=== PATIENT | female | born 1985 ===

== ENCOUNTER 2019-12-03 07:56 | Inpatient (IN) | payer BC ==
[~2019-12-03 07:56] MED LIST: cefOXitin 2 GM Vial ONE
[2019-12-03] MEDS ORDERED: Scopolamine 1.5 MG Transdermal Patch TOP ONE (08:00)
[2019-12-03] MEDS ORDERED: Celecoxib 200 MG Cap PO ONE (08:00)
[2019-12-03] MEDS ORDERED: Acetaminophen 500 MG Tab PO ONE (08:00)
[2019-12-03] MEDS ORDERED: Dextrose 5%-Lactated Ringers 1,000 ML IV SCH ×2 (08:15→14:30)
[2019-12-03 08:45] LABS: HEMOGLOBIN A1C 5.7 % (4.5-6.2)
[2019-12-03] MEDS ORDERED: fentaNYL 250 MCG/5 ML SDV ONE ×2 (09:01→11:03)
[2019-12-03] MEDS ORDERED: Rocuronium 50 MG/5 ML Vial ONE ×2 (09:02→11:16)
[2019-12-03] MEDS ORDERED: Glycopyrrolate 0.2 MG/ML 5 ML MDV ONE (09:02)
[2019-12-03] MEDS ORDERED: Ondansetron 4 MG/2 ML SDV ONE (09:02)
[2019-12-03] MEDS ORDERED: Neostigmine Methylsulfate 1 MG/ML 5 ML Syringe ONE (09:02)
[2019-12-03] MEDS ORDERED: Dexamethasone 4 MG/ML SDV ONE (09:02)
[2019-12-03] MEDS ORDERED: Propofol 200 MG/20 ML SDV ONE (09:02)
[2019-12-03] MEDS ORDERED: Succinylcholine 200 MG/10 ML MDV ONE (09:02)
[2019-12-03] MEDS ORDERED: cefOXitin 2 GM in Sodium Chloride 0.9% 50 ML IV ONE (09:30)
[2019-12-03] MEDS ORDERED: Ketamine 500 MG/5 ML MDV IV SCH (09:30)
[2019-12-03] MEDS ORDERED: Ketamine 50 MG in Sodium Chloride 0.9% 49.5 ML IV SCH (09:30)
[2019-12-03] MEDS ORDERED: Magnesium Sulfate 3.8 GM in Sodium Chloride 0.9% 100 ML IV SCH (09:30)
[2019-12-03] MEDS ORDERED: Lactated Ringers 1,000 ML ONE (10:22)
[2019-12-03] MEDS ORDERED: Labetalol 20 MG/4 ML Syringe ONE (12:18)
[2019-12-03] MEDS ORDERED: fentaNYL 100 MCG/2 ML SDV IVPUSH ONE (13:07)
[2019-12-03] MEDS ORDERED: hydrOXYzine HCL 100 MG/2 ML SDV IM ONE (13:07)
[2019-12-03] MEDS: HYDROmorphone 1 MG/ML Syringe IV PRN ×2 (14:43→19:35)
[2019-12-03] MEDS ORDERED: diphenhydrAMINE 50 MG/ML SDV IVPUSH PRN (15:00)
[2019-12-03] MEDS ORDERED: Labetalol 20 MG/4 ML Syringe IVPUSH PRN (15:00)
[2019-12-03] MEDS ORDERED: Acetaminophen 500 MG Tab PO PRN (15:00)
[2019-12-03] MEDS ORDERED: Calcium Gluconate 10% 1 GM/10 ML SDV IVPUSH PRN (15:00)
[2019-12-03] MEDS ORDERED: hydrOXYzine HCL 100 MG/2 ML SDV IM PRN (15:00)
[2019-12-03] MEDS ORDERED: Ondansetron 4 MG/2 ML SDV IVPUSH PRN (15:00)
[2019-12-03] MEDS ORDERED: Metoclopramide 10 MG/2 ML SDV IVPUSH PRN (15:00)
[2019-12-03] MEDS ORDERED: HYDROmorphone 0.5 MG/0.5 ML Syringe IVPUSH PRN (15:00)
[2019-12-03] MEDS ORDERED: Pantoprazole 40 MG Vial IVPUSH SCH (16:00)
[2019-12-03] MEDS ORDERED: MVI, Adult with Vitamin K 10 ML, Thiamine 200 MG, Chromium/Copper/Mang/Selen/Zn 1 ML in... IV SCH ×4 (16:00)
[2019-12-03] MEDS: cefOXitin 2 GM in Sodium Chloride 0.9% 50 ML IV SCH ×2 (16:05→22:57)
[2019-12-03] MEDS: Acetaminophen 500 MG Tab PO SCH ×2 (16:06→22:57)
[2019-12-03] MEDS: Heparin Sodium 5,000 Units/ML Vial SUBCUT SCH (16:07)
[2019-12-03] MEDS: oxyCODONE 5 MG Tab PO PRN (16:13)
[2019-12-03] MEDS: Cyclobenzaprine 10 MG Tab PO PRN (19:35)
[2019-12-04] MEDS ORDERED: Iopamidol 612 MG/ML 50 ML SDV PO STA (02:43)
[2019-12-04] MEDS: cefOXitin 2 GM in Sodium Chloride 0.9% 50 ML IV SCH ×4 (03:28→22:31)
[2019-12-04] MEDS: oxyCODONE 5 MG Tab PO PRN (03:28)
[2019-12-04] MEDS: Heparin Sodium 5,000 Units/ML Vial SUBCUT SCH ×2 (03:28→15:52)
[2019-12-04] MEDS: Cyclobenzaprine 10 MG Tab PO PRN (04:34)
[2019-12-04] MEDS ORDERED: Ondansetron 4 MG Tab.DIS PO PRN (07:18)
[2019-12-04] MEDS ORDERED: Dextrose 5%-Lactated Ringers 1,000 ML IV SCH (07:30)
--- NOTE | 2019-12-04 08:52 | PN ---
DATE OF SERVICE: 12/04/2019 SUBJECTIVE: Ibeth is postoperative day 1 following duodenal switch. Upper GI was normal. Vital signs have been stable. She has had quite a bit of pain around her CHANELLE drain, and so she did get some IV Dilaudid and oral oxycodone. Intake 120 and urine output via Su catheter 4125. CHANELLE drain put out 135 mL of a light pink drainage. REVIEW OF SYSTEMS: Remainder of review of systems negative for any pertinent positives and negatives. OBJECTIVE: GENERAL: Ibeth Malave is a pleasant 34-year-old female. VITAL SIGNS: TPR at 0300; 98.2, 112, 15. Blood pressure 137/63. HEENT: Negative. NECK: Supple. HEART: Regular rate and rhythm. LUNGS: Clear. ABDOMEN: Dressings dry and intact. Abdominal binder is on. EXTREMITIES: Without peripheral edema. ASSESSMENT: 1. Laparoscopic duodenal switch. 2. Liver biopsy. 3. Repair of paraesophageal hernia. 4. Excision of mediastinal lipoma. POSTOPERATIVE DIAGNOSES: 1. Morbid obesity. 2. Hepatomegaly. 3. Diaphragmatic hernia. 4. Mediastinal lipoma. Date of surgery 12/03/2019. Surgeon: Chetan Aguayo MD. PLAN: 1. Decrease IV to 100 mL per hour. 2. Discontinue Su catheter. 3. Dressing off, may shower. 4. Step 2 gastric bypass diet with no cereal. 5. Atarax 25 mg p.o. q.4 hours p.r.n. pain. 6. Zofran ODT 4 mg sublingual every 4 hours p.r.n. nausea and vomiting. 7. Levothyroxine 112 mcg mg p.o. daily. 8. Discontinue IV Dilaudid, oral oxycodone, cardiac monitoring and pulse oximetry. 9. Communication order written to drink 1 med cup every 20 minutes or 3 every hour. 10.Stressed importance of ambulation and use of incentive spirometer. 11.We will evaluate p.r.n. or in a.m. Adrianne Haro PA-C /[id number]
[2019-12-04] MEDS: Celecoxib 200 MG Cap PO SCH ×2 (08:57→20:24)
[2019-12-04] MEDS: Levothyroxine 112 MCG Tab PO SCH (08:57)
[2019-12-04] MEDS: Acetaminophen 500 MG Tab PO SCH ×3 (08:57→22:31)
[2019-12-04] MEDS ORDERED: Levothyroxine 112 MCG Tab PO SCH (09:00)
--- NOTE | 2019-12-04 09:13 | CR ---
[facility] HISTORY: Postbariatric surgery FINDINGS: Patient swallowed water-soluble contrast. Upright views of the abdomen show no evidence of extravasation or obstruction. There is a surgical drain in the left upper quadrant IMPRESSION: Status post bariatric surgery No extravasation or obstruction seen
[2019-12-04] MEDS: hydrOXYzine HCl 25 MG Tab PO PRN ×3 (11:11→22:36)
[2019-12-04] MEDS: SCOPOLAMINE PATCH CHECK TOP SCH (16:00)
[2019-12-04] MEDS ORDERED: MVI, Adult with Vitamin K 10 ML, Thiamine 200 MG, Chromium/Copper/Mang/Selen/Zn 1 ML in... IV SCH ×4 (16:00)
[2019-12-04] MEDS ORDERED: Pantoprazole 40 MG Delayed-Release Granules 1 Packet PO SCH (16:00)
[2019-12-05] MEDS: hydrOXYzine HCl 25 MG Tab PO PRN ×2 (04:01→09:10)
[2019-12-05] MEDS: Heparin Sodium 5,000 Units/ML Vial SUBCUT SCH (04:01)
[2019-12-05] MEDS ORDERED: Cyanocobalamin (Vitamin B12) 1,000 MCG/ML SDV IM ONE (09:00)
[2019-12-05] MEDS: Celecoxib 200 MG Cap PO SCH (09:10)
[2019-12-05] MEDS: Acetaminophen 500 MG Tab PO SCH (09:10)
[2019-12-05] MEDS: Levothyroxine 112 MCG Tab PO SCH (09:10)
[2019-12-05] MEDS: SCOPOLAMINE PATCH CHECK TOP SCH (09:11)
--- NOTE | 2019-12-05 23:51 | DISCH ---
ADMISSION DIAGNOSES: 1. Morbid obesity. 2. BMI of 46. 3. History of paroxysmal supraventricular tachycardia. 4. Polycystic ovary syndrome. 5. Hypothyroidism. DISCHARGE DIAGNOSES: 1. Laparoscopic duodenal switch. 2. Liver biopsy. 3. Repair of paraesophageal diaphragmatic hernia. 4. Excision of mediastinal lipoma. POSTOPERATIVE DIAGNOSES: 1. Morbid obesity. 2. Hepatomegaly. 3. Diaphragmatic hernia. 4. Mediastinal lipoma. Date of surgery 12/03/2019. Surgeon: Chetan Aguayo MD. HISTORY: Ibeth Malave is a pleasant 34-year-old female with longstanding history of morbid obesity and increasing comorbidities. After preoperative evaluation and discussion of possible risks and possible complications, she wished to proceed with surgical procedure. HOSPITAL COURSE: Ibeth had her surgery on 12/03/2019. She had no operative complications. On postoperative day #1, her upper GI was normal. She was advanced to a step 2 gastric bypass diet with no cereal. She was up ambulating. Vital signs stable. She had dietary instruction and was able to be discharged to home on postoperative day 2. PHYSICAL EXAMINATION: GENERAL: Ibeth is a pleasant 34-year-old female. VITAL SIGNS: Height is 5 feet 7 inches, weight is 295 pounds. TPR is 96.6, 92, 16. Blood pressure 144/82. HEENT: Negative. NECK: Supple. HEART: Regular rate and rhythm. LUNGS: Clear. ABDOMEN: Dressings are dry and intact. Trocar sites look good. Sutures intact. CHANELLE drain is intact, will be removed prior to discharge. Abdominal binder has been on. EXTREMITIES: Without peripheral edema. DISPOSITION: Discharged to home. CONDITION: Stable and improving. FOLLOWUP: Follow up with Adrianne Haro PA-C, 12/11/2019 at 10:15 a.m. HOME MEDICATIONS: 1. Celebrex 200 mg b.i.d., #28. 2. Hydroxyzine 25 mg oral every 4 hours p.r.n. pain. 3. Milk of magnesia 30 mL, take 1 daily, 2 were sent home with patient p.r.n. constipation. 4. Tylenol Extra Strength 1000 mg every 8 hours p.r.n. pain. 5. Zofran 4 mg q.4 hours p.r.n. nausea, #30. She is to resume home medication of levothyroxine 112 mcg oral daily. DIET: Step 2 gastric bypass diet with no cereal until 01/01/2020. Drink 8 to 10 glasses of water a day and 65 g of protein. ACTIVITY: After discharge, no lifting over 10 pounds for 2 weeks. OTHER ACTIVITY: Walk 6 times inside your home. Driving: Do not drive for 1 week. Shower/bathing: May shower. DISCHARGE INSTRUCTIONS: Notify provider if any fever, increased pain, swelling, redness, nausea, or vomiting. Wound incision care, keep site clean and dry. Wear abdominal binder for 2 weeks and then as tolerated. Special Instructions: 1. Use incentive spirometer 10 times every hour while awake for 1 week. 2. Keep track of protein and liquid intake and bring to clinic appointments. /[id number]
--- NOTE | 2019-12-11 14:30 | OR ---
DATE OF PROCEDURE: 12/03/2019 SURGEON: Chetan Aguayo MD PREOPERATIVE DIAGNOSIS: Morbid obesity. POSTOPERATIVE DIAGNOSES: 1. Morbid obesity. 2. Marked hepatomegaly. 3. Paraesophageal diaphragmatic hernia. 4. Mediastinal lipoma. OPERATIVE PROCEDURES: Diagnostic laparoscopy with: 1. Laparoscopic duodenal switch (08589). 2. Ben-Cut needle liver biopsy (15537). 3. Repair of paraesophageal diaphragmatic hernia (60656). 4. Excision of mediastinal lipoma (14262). ANESTHESIA: General. [employer]: Adrianne Haro PA-C INDICATIONS FOR PROCEDURE: A 34-year-old female presenting with longstanding morbid obesity and increasingly significant comorbidities. After preop evaluation and discussion, she wished to proceed with a duodenal switch. After potential risks of procedure including bleeding, infection, leaks from GI tract closures and staple lines, possible problems with bowel obstruction over time as well as possibility of cardiopulmonary, septic, or hemorrhagic complications leading to were all discussed, and the patient wishes to proceed. DETAILS OF PROCEDURE: The patient was taken to the operating room, placed in a supine position. After general endotracheal anesthesia was induced, she was converted to a lithotomy position, and a Su catheter was inserted, and the abdomen prepped and draped. At 20 cm inferior and 5 cm left of the xiphoid process, a transverse incision was made and peritoneal cavity entered under direct vision with an Optiview trocar, inflated to 15 mmHg pressure with CO2. Bilateral transversus abdominis plane blocks were then placed and 5 additional trocars were placed across the upper and mid abdomen. Liver was noted to be markedly enlarged and fatty infiltrated. Ben-Cut needle biopsies were obtained from left lobe of liver. Minimal bleeding from the biopsy sites was controlled with electrocautery. At this point, the small bowel was identified at the ileocecal valve and traced back 300 cm distal to that point where it was noted to come up to the area of the duodenum under some tension. This was felt to be an acceptable degree of tension, but we would forego the Romero- en-Y small bowel anastomosis to avoid otherwise untoward and risky manipulation of the small bowel following the original duodenal ileostomy. The bowel was marked at that level with a suture for subsequent identification. The liver was then retracted anteriorly. The patient was noted to have a moderate-sized paraesophageal diaphragmatic hernia. The hernia at this point was dissected free and it contained some perigastric fat and gastric fundus prolapsing both on the anterior left aspect of the course of the esophagus as well as a portion of stomach prolapsing posteriorly behind the course of the esophagus. The hernia was reduced, and during the course of crural dissection, a mediastinal lipoma was encountered, and this was excised to facilitate a more adequate crural repair, which was then accomplished with 0 Ethibond sutures reinforced with PTFE pledgets. The omentum was then divided away from the greater curvature of stomach beginning initially the mid greater curvature extending up to and through the highest and posterior short gastric vessels. The dissection then continued distally to a point 4 cm distal to the pylorus. The sleeve gastrectomy phase of the procedure was then initiated marking out the initial lay of division around the antrum beginning around 6 cm proximal to the pylorus, and then going inferior to the incisura angularis to the point of overtightening of the stomach at that level. The first 3 firings were undertaken with unreinforced PETER black loads. A 40-Ivorian chest tube was then placed orally per Anesthesia and positioned along the lesser curvature side of the stomach and the remainder of the sleeve gastrectomy was then accomplished with a series of reinforced black and purple PETER loads. Upon completion of the resective phase, the stomach was placed off to the side where it was retrieved later from the abdomen. At this point, the duodenum was dissected 4 cm distal to the pylorus on its posterior aspect. Once this dissection was clear, the duodenum was divided at that level with a reinforced PETER purple load. Stay sutures between the small bowel at the premarked location 300 cm proximal to the ileocecal valve were then placed, one on the superior aspect of the divided duodenum and one on the inferior, thus bringing those 2 structures [id number]. Small enterotomies were then placed on the inferior aspect of each of the components for the duodenal ileostomy and a single internal firing of the Endo-PETER 30 mm stapler was placed. Good luminal diameter was confirmed at that point. Two sutures were then placed along the open end of the duodenal ileostomy with 3-0 Vicryl and these were then elevated, under which a PETER purple load was then fired. Upon completion of that, the staple line appeared to be intact. The latter staple line was reinforced also then with some 3-0 Vicryl seromuscular stitches. Fibrin sealant was then placed on the posterior aspect of the newly formed duodenal ileostomy and then some additional stitches to the afferent limb to the antrum and adjacent omentum were then placed obtaining an angulation of the anastomosis at that level encouraging the flow of the ingested contents exiting the stomach into the efferent limb of the duodenal ileostomy. Additional fibrin sealant was then placed along the length of the sleeve gastrectomy. Staple lines focusing particularly on the area of the gastroesophageal junction where the latter was also reinforced with some 3-0 Vicryl sutures tacking the omentum up into that area. With the chest tube still in place, air was injected into the chest tube causing distention of the sleeve gastrectomy. Flow out of the stomach and into the area of the ileum was confirmed and no leaks or other signs of problems were seen. The chest tube was then removed as was the gastric specimen at this point. The area was irrigated once again with some antibiotic-containing saline solution. Single Jeremy-Devlin drain was then placed through the left lateral trocar site and positioned up adjacent to the esophagogastric junction and from there up into the splenic fossa. The trocars were then sequentially removed, the peritoneal cavity deflated. Incisions were closed with some 4-0 Vicryl skin stitch and the patient was taken to the recovery room in satisfactory condition. There were no evident complications. Physician training and development assistant, Adrianne Haro, played an essential role in assisting in this case, helping to position the patient, retract structures as needed, as well as suturing and cutting sutures when indicated. Her presence improved patient safety and decreased the operative time. Chetan Aguayo MD /[id number]
== END 2019-12-05 11:00 | disposition home or self-care (01) | DRG 403 ==
LOC: JP.SDS 07:56 → JP.MS 07:57 → EDSTATUS 09:15 → JP.MS 13:15
PROVIDERS: ADMIT Surgery; ATTEND Surgery
PROC: 0D194ZB Bypass Duodenum to Ileum, Percutaneous Endoscopic Approach (ICD-10-PCS; principal; 2019-12-03)
PROC: 0DB64Z3 Excision of Stomach, Percutaneous Endoscopic Approach, Vertical (ICD-10-PCS; 2019-12-03)
PROC: 0FB24ZX Excision of Left Lobe Liver, Percutaneous Endoscopic Approach, Diagnostic (ICD-10-PCS; 2019-12-03)
PROC: 0BQT4ZZ Repair Diaphragm, Percutaneous Endoscopic Approach (ICD-10-PCS; 2019-12-03)
PROC: 0JB63ZZ Excision of Chest Subcutaneous Tissue and Fascia, Percutaneous Approach (ICD-10-PCS; 2019-12-03)
DX: E66.01 Morbid (severe) obesity due to excess calories (principal); R16.0 Hepatomegaly, not elsewhere classified; K44.9 Diaphragmatic hernia without obstruction or gangrene; D17.1 Benign lipomatous neoplasm of skin and subcutaneous tissue of trunk; Z68.42 Body mass index [BMI] 45.0-49.9, adult; E28.2 Polycystic ovarian syndrome; E03.9 Hypothyroidism, unspecified; F41.1 Generalized anxiety disorder; E78.5 Hyperlipidemia, unspecified; E06.3 Autoimmune thyroiditis; Z79.899 Other long term (current) drug therapy
CPT/HCPCS: 36415; 74240; 74240-26; 81025; 82947; 83036; 86850; 86900; 86901; 88304; 88307; 88313; 88342; 93005; 93010; 94762; A9270-GY; C9113; J0171; J0330; J0694; J1100; J1170; J1644; J2405; J2704; J2710; J2795; J3010; J3410; J3411; J3420; J3475; J3490; J7030; J7050; J7120; J7121; Q9967